=== PATIENT | female | born 1995 | race Caucasian/White ===

== ENCOUNTER 2019-04-26 21:14 | Emergency (ER) | payer BC ==
[2019-04-26] MEDS ORDERED: diphenhydrAMINE 50 MG/ML SDV IVPUSH ONE (21:42)
--- NOTE | 2019-04-26 21:49 | EDM.PDOC ---
ED HPI GENERAL MEDICAL PROBLEM - General Chief Complaint: Allergic Reaction Stated Complaint: Allergic reaction Time Seen by Provider: 04/26/19 21:25 Source of Information: Reports: Patient History Limitations: Reports: No Limitations - History of Present Illness INITIAL COMMENTS - FREE TEXT/NARRATIVE: Patient is a 23-year-old who came in with possible allergic reaction states that she was home with her mother and father and started feeling warm and her end and then I'll send her skin turned red and they noticed that she was having what appeared to be an allergic reaction and brought her in for evaluation she never had difficulty breathing. Onset: Sudden Duration: Minutes:, Improving Location: Reports: Generalized Quality: Reports: Ache Severity: Mild Improves with: Reports: Rest Worsens with: Reports: None Associated Symptoms: Reports: No Other Symptoms - Related Data Allergies Allergy/AdvReac Type Severity Reaction Status Date / Time cefazolin Allergy Hives Verified 04/26/19 21:16 strawberry Allergy Hives Verified 04/26/19 21:16 Home Meds: Home Meds Loratadine [Claritin] 10 mg PO DAILY PRN 09/14/14 [History] Multivitamin [Multi Vitamin Daily] 1 tab PO DAILY 09/14/14 [History] FLUoxetine HCl [Fluoxetine HCl] 20 mg PO DAILY 04/26/19 [History] Past Medical History Psychiatric History: Reports: Anxiety Social & Family History - Tobacco Use Smoking Status *Q: Current Some Day Smoker Years of Tobacco use: 5 Packs/Tins Daily: 0.1 Tobacco Use Comment: Rare use - Recreational Drug Use Recreational Drug Use: No ED ROS ALLERGIC REACTION - Review of Systems Review Of Systems: See Below ED EXAM GENERAL NO PERIP PULSE - Physical Exam Exam: See Below Exam Limited By: No Limitations General Appearance: Alert, WD/WN, No Apparent Distress Ears: Other (Ear red) Nose: Normal Inspection, Normal Mucosa, No Blood Throat/Mouth: Normal Inspection, Normal Lips, Normal Teeth, Normal Gums, Normal Oropharynx, Normal Voice, No Airway Compromise Head: Atraumatic, Normocephalic Neck: Normal Inspection, Supple, Non-Tender, Full Range of Motion Respiratory/Chest: No Respiratory Distress, Lungs Clear, Normal Breath Sounds, No Accessory Muscle Use, Chest Non-Tender Cardiovascular: Normal Peripheral Pulses, Regular Rate, Rhythm, No Edema, No Gallop, No JVD, No Murmur, No Rub GI/Abdominal: Normal Bowel Sounds, Soft, Non-Tender, No Organomegaly, No Distention, No Abnormal Bruit, No Mass Back Exam: Normal Inspection, Full Range of Motion, NT Extremities: Normal Inspection, Normal Range of Motion, Non-Tender, Normal Capillary Refill, No Pedal Edema Neurological: Alert, Oriented, CN II-XII Intact, Normal Cognition, Normal Gait, Normal Reflexes, No Motor/Sensory Deficits Psychiatric: Normal Affect, Normal Mood Skin Exam: Rash Lymphatic: No Adenopathy Course - Vital Signs Last Recorded V/S: Last Vital Signs Temp 98.3 F 04/26/19 21:14 Pulse 108 H 04/26/19 21:28 Resp 18 04/26/19 21:28 BP 144/72 H 04/26/19 21:28 Pulse Ox 100 04/26/19 21:28 - Orders/Labs/Meds Meds: Medications Discontinued Medications Generic Name Dose Route Start Last Admin Trade Name Freq PRN Reason Stop Dose Admin Diphenhydramine HCl 50 mg 04/26/19 21:42 Benadryl IVPUSH 04/26/19 21:43 ONETIME ONE Departure - Departure Time of Disposition: 21:50 Disposition: Home, Self-Care 01 Condition: Fair Clinical Impression: Allergic reaction Qualifiers: Encounter type: initial encounter Qualified Code(s): T78.40XA - Allergy, unspecified, initial encounter - Discharge Information *PRESCRIPTION DRUG MONITORING PROGRAM REVIEWED*: No *COPY OF PRESCRIPTION DRUG MONITORING REPORT IN PATIENT STEVE: No Referrals: Susan Arauz NP [Primary Care Provider] - Care Plan Goals: Patient seen at this time Benadryl shot was given will go ahead and start her on oral Benadryl at home and she can follow-up with primary if not better or come to the clinic.
[2019-04-26] MEDS ORDERED: diphenhydrAMINE 25 MG Cap PO ONE (22:02)
== END 2019-04-26 22:20 | disposition home or self-care (01) ==
LOC: LL.ED 21:14
DX: T78.40XA Allergy, unspecified, initial encounter (principal); F41.9 Anxiety disorder, unspecified; F17.210 Nicotine dependence, cigarettes, uncomplicated; Z91.018 Allergy to other foods; Z88.1 Allergy status to other antibiotic agents; Z79.899 Other long term (current) drug therapy
CPT/HCPCS: 96372; 99283; A9270; J1200

== ENCOUNTER 2021-05-19 11:26 | Emergency (ER) | payer BC, MEDICAID ==
[2021-05-19 11:41] VITALS: BP 133/89; PULSE 108
--- NOTE | 2021-05-19 12:12 | EDM.PDOC ---
ED HPI GENERAL MEDICAL PROBLEM - General Chief Complaint: Gastrointestinal Problem Stated Complaint: Blood in stool Time Seen by Provider: 05/19/21 12:07 Source of Information: Reports: Patient - History of Present Illness INITIAL COMMENTS - FREE TEXT/NARRATIVE: Lissa is 25 y/o female who comes to the ER with bright red rectal bleeding. She denies ever having this before until the last couple days. She does report that her stools were a harder this weekend, although she doesn't think she is constipated and had not ever had a problem with this. The bright red bleeding seems to be around the actual stool, not in it. She is able to wipe some bright red blood from her rectum. Denies any clots, black color, lightheadedness, or dizziness with the rectal bleeding. No pain with the bleeding. - Related Data Allergies Allergy/AdvReac Type Severity Reaction Status Date / Time cefazolin Allergy Hives Verified 04/26/19 21:16 strawberry Allergy Hives Verified 04/26/19 21:16 Home Meds: Home Meds Loratadine [Claritin] 10 mg PO DAILY PRN 09/14/14 [History] Multivitamin [Multi-Vitamin Daily] 1 tab PO DAILY 09/14/14 [History] FLUoxetine HCl [Fluoxetine HCl] 20 mg PO DAILY 04/26/19 [History] diphenhydrAMINE [Benadryl] 25 mg PO Q6H 5 Days #20 cap 04/26/19 [Rx] Docusate Sodium 100 mg PO BID PRN #60 capsule 05/19/21 [Rx] Hydrocortisone Acetate [Anucort-HC] 25 mg RECTAL TID PRN #12 supp 05/19/21 [Rx] Past Medical History Psychiatric History: Reports: Anxiety Review of Systems - Review of Systems Review Of Systems: See Below Constitutional: Reports: No Symptoms Eyes: Reports: No Symptoms Ears: Reports: No Symptoms Nose: Reports: No Symptoms Mouth/Throat: Reports: No Symptoms Respiratory: Reports: No Symptoms Cardiovascular: Reports: No Symptoms GI/Abdominal: Reports: Bloody Stool, Constipation Genitourinary: Reports: No Symptoms Musculoskeletal: Reports: No Symptoms Skin: Reports: No Symptoms Neurological: Reports: No Symptoms Psychiatric: Reports: No Symptoms ED EXAM, GENERAL - Physical Exam Exam: See Below General Appearance: Alert, WD/WN, No Apparent Distress, Anxious (Adult female) Ears: Hearing Grossly Normal Nose: Normal Inspection Throat/Mouth: Normal Inspection, Normal Lips, Normal Voice Head: Atraumatic, Normocephalic Respiratory/Chest: No Respiratory Distress GI/Abdominal: Normal Bowel Sounds, Soft, Non-Tender, Other (Obese) (Female) Exam: Deferred Rectal (Female) Exam: Hemorrhoids (Internal, bright red blood noted on rectal exam with normal stool. No particular tenderness with exam.) Extremities: Normal Inspection, Normal Range of Motion, Normal Capillary Refill Neurological: Alert, Oriented, CN II-XII Intact, Normal Cognition, Normal Gait Psychiatric: Normal Mood, Anxious Skin Exam: Warm, Dry, Intact Lymphatic: No Adenopathy Course - Vital Signs Text/Narrative:: 1140 The patient was seen by the SAFETY COORDINATOR. No labs or diagnostic imaging was indicated. SAFETY COORDINATOR noted small amount of bright red blood, but no melena or hematochezia. Doubt GI bleed, due to young age and no risk factors. Suspect internal hemorrhoids aggravated by mild constipation. Reassurance given. Will treat with hydrocortisone suppositories and stool softner. Questions answered. Patient was given written instructions and left the ER in stable condition with her mother. Last Recorded V/S: Last Vital Signs Temp 36.6 C 05/19/21 11:30 Pulse 108 H 05/19/21 11:30 Resp 16 05/19/21 11:30 BP 133/89 05/19/21 11:30 Pulse Ox 100 05/19/21 11:30 Departure - Departure Time of Disposition: 12:07 Disposition: Home, Self-Care 01 Condition: Good Clinical Impression: Internal bleeding hemorrhoids, Constipation - Discharge Information *PRESCRIPTION DRUG MONITORING PROGRAM REVIEWED*: No *COPY OF PRESCRIPTION DRUG MONITORING REPORT IN PATIENT STEVE: No Prescriptions: Hydrocortisone Acetate [Anucort-HC] 25 mg RECTAL TID PRN #12 supp PRN Reason: Inflammed Hemorrhoids Docusate Sodium 100 mg PO BID PRN #60 capsule PRN Reason: Constipation Instructions: Constipation, Adult, [id number], Hemorrhoids Referrals: Susan Arauz NP [Primary Care Provider] - Forms: ED Department Discharge Additional Instructions: -Hydrocortisone Supp 2-3 x daily as needed for inflammation #12 (Rx) -Docusate sodium 100mg oral 2x daily as needed for Constipation (OTC med) -Drink plenty of fluids -If the bleeding continues and or you have nay other symptoms such as weakness, pallor, dizziness, or increase bleeding return to the ER or follow up with your PCP Sepsis Event Note (ED) - Evaluation Sepsis Screening Result: No Definite Risk - Focused Exam Vital Signs: Vital Signs Temp Pulse Resp BP Pulse Ox 05/19/21 11:30 36.6 C 108 H 16 133/89 100 - Problem List & Annotations (1) Internal bleeding hemorrhoids SNOMED Code(s): 02709169 Code(s): K64.8 - OTHER HEMORRHOIDS Status: Acute Annotation/Comment:: Aggrevated by mild constipation, will have her use Hydrocortisone suppositories. (2) Constipation SNOMED Code(s): 47037661 Code(s): K59.00 - CONSTIPATION, UNSPECIFIED Status: Acute Annotation/Comment:: -Docusate sodium 100mg po BID, OTC -Increase fluids, fiber in diet - Problem List Review Problem List Initiated/Reviewed/Updated: Yes - Assessment/Plan Plan: See Below
== END 2021-05-19 12:20 | disposition home or self-care (01) ==
LOC: LL.ED 11:26
DX: K64.8 Other hemorrhoids (principal); K59.00 Constipation, unspecified; Z91.018 Allergy to other foods; Z88.8 Allergy status to other drugs, medicaments and biological substances
CPT/HCPCS: 99283; 99284